=== PATIENT | male | born 2000 | race Caucasian/White ===

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

== ENCOUNTER 2021-03-15 04:18 | Emergency (ER) | payer SELFPAY ==
[~2021-03-15] VITALS: Ht 180.3 cm; Wt 62.7 kg
[~2021-03-15 04:18] MED LIST changes: +DIVA-76 PO; -DIVA500T7 PO; -SULF1TAB35 PO; +SULF1TAB38 PO
--- NOTE | 2021-03-15 04:39 | ED General ---
General Chief Complaint: General Problems/Pain Stated Complaint: "FEELS HOT" / N/V/D / COVID EXPOSED Nursing Triage Note: Patient reports feeling really warm and not being able to sleep Source of Information: Patient Exam Limitations: No Limitations History of Present Illness Date Seen by Provider: Mar 15, 2021 Time Seen by Provider: 04:26 Initial Comments Patient is a 20-year-old male who presents to the emergency department this morning with a chief complaint of nausea, body aches, diarrhea and feeling "hot". Patient states he woke up with symptoms this morning. He states he was exposed to Covid sometime last week. He complains of an earache this morning in both ears. No sore throat no runny nose or congestion. No chest pain or shortness of breath or productive cough. No abdominal pain. Nausea without vom iting. No urinary complaints. He is not Covid vaccinated. All other review of systems reviewed and negative except as stated. Timing/Duration: 1-3 Hours Severity: Moderate Associated Systoms: Headaches, Malaise, Nausea/Vomiting Allergies and Home Medications Allergies Coded Allergies: No Known Drug Allergies (Unverified , 09/01/17) Home Medications Dexamethasone 6 Mg Tablet, 6 MG PO DAILY Prescribed by: OLIVA JAIMES on 03/15/21 0520 Patient Home Medication List Home Medication List Reviewed: Yes Review of Systems Review of Systems Constitutional: see HPI, malaise EENTM: ear pain (bilateral) Respiratory: no symptoms reported Cardiovascular: no symptoms reported Gastrointestinal: diarrhea, nausea Genitourinary: no symptoms reported Musculoskeletal: no symptoms reported Skin: no symptoms reported All Other Systems Reviewed Negative Unless Noted: Yes Past Gwcjxsb-Kjrvut-Ikfdtv Hx Patient Social History Tobacco Use?: Yes Use of E-Cig and/or Vaping dev: Yes Use of E-Cig and/or Vaping [place]: Current Everyday User Substance use?: No Pt feels they are or have been: No Immunizations Up To Date Tetanus Booster (TDap): Less than 5yrs PED Vaccines UTD: Yes Seasonal Allergies Seasonal Allergies: No Past Medical History Surgeries: No Respiratory: No Cardiac: No Neurological: No (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) Reproductive Disorders: No Genitourinary: No Gastrointestinal: No Musculoskeletal: No Endocrine: No HEENT: No Cancer: No Psychosocial: Yes (HISTORY OF CUTTING, SUICIDAL IDEATIONS; POLYSUBSTANCE ABUSE) Anxiety, Suicide Attempts, Bipolar, Depression Integumentary: No Blood Disorders: No Adverse Reaction/Blood Tranf: No Family Medical History No Pertinent Family Hx, Cancer, Psychiatric Problems Physical Exam Vital Signs Vital Signs - First Documented 03/15/21 04:29 Temp 36.8 Pulse 97 Resp 20 B/P (MAP) 124/78 (93) Pulse Ox 98 O2 Delivery Room Air Capillary Refill : Height, Weight, BMI Height: 5'11.00" Weight: 148lbs. 0.0oz. [id number]; 19.00 BMI Method:Stated General Appearance: No Apparent Distress, WD/WN Eyes: Bilateral Eye Normal Inspection, Bilateral Eye PERRL, Bilateral Eye EOMI HEENT: TMs Normal Neck: Normal Inspection, Non Tender, Supple Respiratory: Lungs Clear, Normal Breath Sounds, No Accessory Muscle Use, No Respiratory Distress Cardiovascular: Regular Rate, Rhythm, Normal Peripheral Pulses Gastrointestinal: Non Tender, Soft Extremity: Normal Inspection, Normal Range of Motion Neurologic/Psychiatric: Alert, Oriented x3, Normal Mood/Affect Skin: Normal Color, Warm/Dry Progress/Results/Core Measures Suspected Sepsis SIRS Temperature: Pulse: 97 Respiratory Rate: 20 Blood Pressure 124 /78 Mean: 93 Results/Orders Lab Results Laboratory Tests Test 03/15/21 04:44 Range/Units SARS-CoV-2 RNA (RT-PCR) Detected H Not Detecte My Orders Orders - OLIVA JAIMES MD Covid 19 Inhouse Test (03/15/21 04:35) Ibuprofen Tablet (Motrin Tablet) (03/15/21 04:45) Dexamethasone Tablet (Decadron Tablet) (03/15/21 05:20) Medications Given in ED Current Medications Medications Dose Ordered Sig/Aaron Route Start Time Stop Time Status Last Admin Dose Admin Ibuprofen 600 mg ONCE ONCE PO 03/15/21 04:45 03/15/21 04:46 DC 03/15/21 04:45 600 MG Vital Signs/I&O 03/15/21 04:29 Temp 36.8 Pulse 97 Resp 20 B/P (MAP) 124/78 (93) Pulse Ox 98 O2 Delivery Room Air Capillary Refill : Blood Pressure Mean: 93 Progress Note : Time: 05:17 Progress Note Patient is positive for Covid. Will recommend decadron 6 mg a day for 5 days. Home with encouragement of fluids and tylenol and ibuprofen. Return precautions given. Quarantine for 10days. Departure Impression Primary Impression: COVID-19 Disposition: 01 HOME, SELF-CARE Condition: Stable Departure-Patient Inst. Decision time for Depature: 05:18 Referrals: [facility]/ (PCP/Family) Primary Care Physician Patient Instructions: COVID-19 (DC) Add. Discharge Instructions: Drink plenty of fluids to stay well-hydrated. Alternate Tylenol and ibuprofen for body aches, headaches and pain. Decadron 6 mg a day by mouth for the next 5 days. Follow-up with your primary care physician as needed. Return to the emergency department for reevaluation if you have worsening symptoms to include shortness of breath, high fever, or other emergent concerning symptoms. Scripts Dexamethasone (Decadron) 6 Mg Tablet 6 MG PO DAILY for 4 Days, #4 TAB Prov: OLIVA JAIMES MD 03/15/21 Work/School Note: Work Release Form Date Seen in the Emergency Department: Mar 15, 2021 Return to Work: Mar 25, 2021 Other Restrictions Listed Below: Off work 10 days for quarantine due to Covid 19 virus OLIVA JAIMES MD Mar 15, 2021 04:39
[2021-03-15] MEDS ORDERED: IBUPROFEN 600 MG (MOTRIN) TAB PO ONE (04:45)
[2021-03-15] MEDS ORDERED: dexAMETHasone 6 MG TAB (DECADRON) PO STA (05:20)
[2021-03-15] MEDS ORDERED: DEXA6TAB6 PO (05:20)
[2021-03-15 05:25] VITALS: BP 124/78
[2021-03-16] MEDS ORDERED: DOXY100T2 PO (18:16)
== END 2021-03-15 05:31 | disposition home or self-care (01) ==
LOC: EDUNIT# 04:18 → ER 04:20
DX: U07.1 COVID-19 (principal); F17.200 Nicotine dependence, unspecified, uncomplicated
CPT/HCPCS: 87636; 99283

== ENCOUNTER 2021-03-15 14:18 | Emergency (ER) | payer SELFPAY ==
[~2021-03-15] VITALS: Ht 180 cm; Wt 62.7 kg
[~2021-03-15 14:18] MED LIST changes: +DEXA6TAB6 PO
[2021-03-15] MEDS ORDERED: AZITHROMYCIN 250 MG TAB (ZITHROMAX) PO ONE (15:00)
[2021-03-15] MEDS ORDERED: cefTRIAXone 1,000 MG in WATER (STERILE) FOR INJECTION 10 ML IV ONE (15:00)
--- NOTE | 2021-03-15 15:09 | ED GU-Male ---
General Chief Complaint: - Urinary Stated Complaint: BURNING WHILE URINATING, COVID+ Nursing Triage Note: PT PRESENTS TO THE ED WITH CONCERNS OF URINARY DISCOMFORT AFTER BEGINNING STEROIDS THIS AM AFTER BEING DX WITH COVID IN THIS ED. PT STATES HE WAS SEEN FOR ABD. PAIN AND LOOSE STOOLS AROUND 0400. PT VERBALIZES A HX OF STD'S Source: patient Exam Limitations: no limitations History of Present Illness Date Seen by Provider: Mar 15, 2021 Time Seen by Provider: 14:36 Initial Comments Patient to the ER by private conveyance from home with chief complaint that a bout 2:00 this afternoon he started having some burning with urination fever chills and body aches. He went to an urgent care where he was tested positive for Covid but they did not do any urine specimens. He is not having any urinary discharge, testicular swelling or redness. He says he was positive for syphilis about 7 months ago and was treated with a shot of antibiotics. He says he has not been sexually active since then. The clinic put him on steroids for his Covid Allergies and Home Medications Allergies Coded Allergies: No Known Drug Allergies (Unverified , 09/01/17) Home Medications Dexamethasone 6 Mg Tablet, 6 MG PO DAILY Prescribed by: OLIVA JAIMES on 03/15/21 0520 Patient Home Medication List Home Medication List Reviewed: Yes Review of Systems Review of Systems Constitutional: No chills, No diaphoresis EENTM: No ear discharge, No ear pain Respiratory: No cough, No short of breath Cardiovascular: No chest pain, No palpitations Gastrointestinal: No abdominal pain, No nausea, No vomiting Genitourinary: burning; denies discharge; dysuria; denies flank pain, denies hematuria All Other Systemes Reviewed Negative Unless Noted: Yes Past Pwazxpe-Sttitu-Tpgbfm Hx Patient Social History Tobacco Use?: Yes Use of E-Cig and/or Vaping dev: Yes Substance use?: No Alcohol Use?: No Immunizations Up To Date Tetanus Booster (TDap): Less than 5yrs PED Vaccines UTD: Yes Influenza Vaccine Up-to-Date: No; Not Current Seasonal Allergies Seasonal Allergies: No Past Medical History Surgeries: No Respiratory: No Cardiac: No Neurological: No (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) Reproductive Disorders: No Genitourinary: No Gastrointestinal: No Musculoskeletal: No Endocrine: No HEENT: No Cancer: No Psychosocial: Yes (HISTORY OF CUTTING, SUICIDAL IDEATIONS; POLYSUBSTANCE ABUSE) Anxiety, Suicide Attempts, Bipolar, Depression Integumentary: No Blood Disorders: No Adverse Reaction/Blood Tranf: No Family Medical History No Pertinent Family Hx, Cancer, Psychiatric Problems Physical Exam Vital Signs Vital Signs - First Documented 03/15/21 14:38 Temp 37.6 Pulse 99 Resp 20 B/P (MAP) 125/77 (93) Pulse Ox 100 O2 Delivery Room Air Capillary Refill : Less Than 3 Seconds Height, Weight, BMI Height: 5'11.00" Weight: 148lbs. 0.0oz. 67.200357vn; 19.00 BMI Method:Stated General Appearance: WD/WN, no apparent distress HEENT: PERRL/EOMI, pharynx normal Neck: full range of motion, normal inspection Cardiovascular: normal peripheral pulses, regular rate, rhythm Respiratory: no respiratory distress, no accessory muscle use Neurologic/Psychiatric: alert, oriented x 3, other (Anxious affect) Skin: normal color, warm/dry Progress/Results/Core Measures Suspected Sepsis SIRS Temperature: Pulse: 99 Respiratory Rate: 20 Blood Pressure 125 /77 Mean: 93 Results/Orders Lab Results Laboratory Tests Test 03/15/21 14:54 03/15/21 15:00 Range/Units Urine Color YELLOW Urine Clarity CLEAR Urine pH 6.5 5-9 Urine Specific [place] 1.025 H 1.016-1.022 Urine Protein 1+ H NEGATIVE Urine Glucose (UA) 3+ H NEGATIVE Urine Ketones NEGATIVE NEGATIVE Urine Nitrite NEGATIVE NEGATIVE Urine Bilirubin NEGATIVE NEGATIVE Urine Urobilinogen 1.0 < = 1.0 MG/DL Urine Leukocyte Esterase NEGATIVE NEGATIVE Urine RBC (Auto) NEGATIVE NEGATIVE Urine RBC NONE /HPF Urine WBC RARE /HPF Urine Crystals PRESENT H /LPF Urine Amorphous Sediment RARE MOSES URATES H /LPF Urine Bacteria NEGATIVE /HPF Urine Casts NONE /LPF Urine Mucus NEGATIVE /LPF Urine Culture Indicated NO My Orders Orders - BILL FRANKS Ua Culture If Indicated (03/15/21 14:41) Neis Agustin Dna Urine Test (03/15/21 15:00) Chlamydia Trachomatis Urine (03/15/21 15:00) Ceftriaxone (Rocephin) (03/15/21 15:00) Azithromycin Tablet (Zithromax Tablet) (03/15/21 15:00) Syphilis Antibody Screen (03/15/21 15:05) Medications Given in ED Current Medications Medications Dose Ordered Sig/Aaron Route Start Time Stop Time Status Last Admin Dose Admin Azithromycin 1,000 mg ONCE ONCE PO 03/15/21 15:00 03/15/21 15:02 DC 03/15/21 15:11 1,000 MG Ceftriaxone Sodium 1000 mg/ Sterile Water 10 ml @ 200 mls/hr ONCE ONCE IV 03/15/21 15:00 03/15/21 15:02 DC 03/15/21 15:12 200 MLS/HR Vital Signs/I&O 03/15/21 14:38 Temp 37.6 Pulse 99 Resp 20 B/P (MAP) 125/77 (93) Pulse Ox 100 O2 Delivery Room Air Capillary Refill : Less Than 3 Seconds Blood Pressure Mean: 93 Progress Note : Time: 15:07 Progress Note Plan to retest give him a shot of Rocephin, azithromycin and send off a syphilis as well. Departure Impression Primary Impression: Urethritis, unspecified Disposition: HOME, SELF-CARE Condition: Stable Departure-Patient Inst. Decision time for Depature: 16:05 Referrals: [facility] (PCP/Family) Primary Care Physician TAMMY ONEIL MD Patient Instructions: Urethritis (DC) Add. Discharge Instructions: Drink plenty of fluids. Azo 1 tablet twice a day as necessary for painful urina tion. This will cause the urine to look dark orange which is normal. You should hear something by Monday or if there is a positive result on your tests. If your symptoms are getting better then you do not need to do anything different. You may follow-up with your primary care doctor or the urologist, Dr. Oneil if your symptoms are not improving over the next 2 to 3 days. All discharge instructions reviewed with patient and/or family. Voiced understanding. Copy Copies To 1: TAMMY ONEIL MD, TITUS J Mar 15, 2021 15:09
[2021-03-15 15:17] LABS: BILIRUBIN,URINE NEGATIVE (NEGATIVE); CLARITY,URINE CLEAR; COLOR,URINE YELLOW; GLUCOSE, URINE (UA) 3+ (NEGATIVE); KETONES,URINE NEGATIVE (NEGATIVE); LEUKOCYTE ESTERASE ,URINE NEGATIVE (NEGATIVE); NITRITE,URINE NEGATIVE (NEGATIVE); PH,URINE 6.5 (5-9); PROTEIN,URINE 1+ (NEGATIVE)
[2021-03-15 15:34] LABS: AMORPHOUS SEDIMENT,UR RARE AMOR URATES /LPF; BACTERIA,URINE NEGATIVE /HPF; WBC,URINE RARE /HPF
[2021-03-15 16:15] VITALS: BP 132/74
[2021-03-16] MEDS ORDERED: DOXY100T2 PO (18:16)
== END 2021-03-15 16:15 | disposition home or self-care (01) ==
LOC: EDUNIT# 14:18 → ER 14:20
DX: N34.2 Other urethritis (principal); U07.1 COVID-19
CPT/HCPCS: 36415; 81000; 86592; 86780; 87491; 87591

== ENCOUNTER 2021-03-16 17:42 | Emergency (ER) | payer SELFPAY ==
[~2021-03-16] VITALS: Ht 180 cm; Wt 62.5 kg
[2021-03-16] MEDS ORDERED: PEN G PROC/BENZATH 1.2 M UNITS/2 ml (BICILLIN C-R) SYR IM ONE (18:15)
[2021-03-16] MEDS ORDERED: DOXY100T2 PO (18:16)
--- NOTE | 2021-03-16 18:16 | ED General ---
General Chief Complaint: Abdominal/GI Problems Stated Complaint: URINARY PROBLEMS, COVID POSITIVE Source of Information: Patient, Old Records History of Present Illness Date Seen by Provider: Mar 16, 2021 Time Seen by Provider: 18:00 Initial Comments PT ARRIVES VIA POV FROM HOME PT WITH MULTIPLE COMPLAINTS PT HAS BEEN ILL FOR THE LAST 2 DAYS, AND WAS SEEN HERE YESTERDAY AND TESTED + FOR COVID-19, AND GIVEN RX FOR DECADRON X 5 DAYS PT STATES HE HAS OCCASIONAL SLIGHT SHORTNESS OF BREATH NO SIGNIFICANT COUGH DENIES FEVER/SWEATS/CHILLS TO ME STATES HE HAS HAD DECREASED SENSE OF TASTE AND SMELL C/O MILD NAUSEA, NO VOMITING HAD DIARRHEA X 1 TODAY, DID NOT MAKE IT TO BATHROOM IN TIME NO ABDOMINAL PAIN NO SORE THROAT NO HEADACHE OR BODY ACHES TODAY, BUT HAS HAD BODY ACHES ALSO SEEN IN ER A SECOND TIME YESTERDAY FOR URINARY SYMPTOMS--PAIN ON URINATION WAS GIVEN ROCEPHIN AND ZITHROMAX YESTERDAY PT STATES HE STILL HAS SOME PAIN ON URINATION REVIEWED TEST RESULTS FROM YESTERDAY--GONORRHEA AND CHLAMYDIA WERE NEGATIVE, BUT PT WAS POSITIVE FOR SYPHILIS CONTACTED [facility], [facility] AND THEY REPORT THAT PT TESTED + FOR SYPHILIS IN NOVEMBER OF THIS YEAR, AND WAS TREATED WITH A SHOT, BUT PT HAS NOT FOLLOWED UP ON DISCUSSING THIS WITH PT, HE DOES NOW ADMIT THAT HE HAD SYPHILIS CLAIMS HE HAS NOT HAD INTERCOURSE SINCE NOVEMBER, BUT DOES NOT STATE IF PARTNER/S WERE TREATED WHEN I QUESTIONED HIM ABOUT THIS--HE SIMPLY DOES NOT ANSWER QUESTION PT STATES HE DID HAVE A SORE ON HIS PENIS, BUT IT WENT AWAY AFTER HE WAS TREATED IN NOVEMBER PT STATES THE SORE HAS RETURNED RECENTLY, BUT UNABLE TO STATE WHEN HE NOTICED IT AGAIN--STATES THE SORE IS IN THE SAME PLACE BEFORE, AND IS PAINLESS AND NO DRAINAGE, ETC FROM THE AREA. [facility]ations Allergies Coded Allergies: No Known Drug Allergies (Unverified , 09/01/17) Home Medications Dexamethasone 6 Mg Tablet, 6 MG PO DAILY Prescribed by: OLIVA JAIMES on 03/15/21 0520 Doxycycline Hyclate 100 Mg Tablet, 100 MG PO BID Prescribed by: EDER LÓPEZ on 03/16/21 1816 Patient Home Medication List Home Medication List Reviewed: Yes Review of Systems Review of Systems Constitutional: no symptoms reported EENTM: see HPI Respiratory: see HPI Cardiovascular: no symptoms reported Gastrointestinal: see HPI Genitourinary: see HPI Musculoskeletal: no symptoms reported Skin: see HPI Psychiatric/Neurological: No Symptoms Reported Hematologic/Lymphatic: No Symptoms Reported Immunological/Allergic: no symptoms reported Past Latcfhy-Jnbaer-Fbvhpz Hx Patient Social History Tobacco Use?: No Use of E-Cig and/or Vaping dev: Yes E-Cig or Vaping type used: Nicotine Use of E-Cig and/or Vaping [place]: Current Everyday User Substance use?: No Alcohol Use?: No Immunizations Up To Date Tetanus Booster (TDap): Less than 5yrs PED Vaccines UTD: Yes Seasonal Allergies Seasonal Allergies: No Past Medical History Surgeries: No Respiratory: No Cardiac: No Neurological: No (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") Reproductive Disorders: No Sexually Transmitted Disease: Yes (SYPHILIS DX 11/2020, AND AGAIN 03/15/21) Genitourinary: No Gastrointestinal: No Musculoskeletal: No Endocrine: No HEENT: No Cancer: No Psychosocial: Yes (HISTORY OF CUTTING, SUICIDAL IDEATIONS; POLYSUBSTANCE ABUSE) Anxiety, Suicide Attempts, Bipolar, Depression Integumentary: No Blood Disorders: No Adverse Reaction/Blood Tranf: No Family Medical History No Pertinent Family Hx, Cancer, Psychiatric Problems Physical Exam Vital Signs Vital Signs - First Documented 03/16/21 18:05 Temp 37.6 Pulse 67 Resp 18 B/P (MAP) 120/70 (87) Pulse Ox 97 O2 Delivery Room Air Capillary Refill : Height, Weight, BMI Height: 5'11.00" Weight: 148lbs. 0.0oz. [id number]; 19.00 BMI Method:Stated General Appearance: No Apparent Distress, WD/WN, Thin, Other (DOES NOT APPEAR ILL OR TO BE IN ANY DISCOMFORT OR DISTRESS) HEENT: PERRL/EOMI, TMs Normal, Normal ENT Inspection, Pharynx Normal Neck: Normal Inspection Respiratory: Normal Breath Sounds, No Accessory Muscle Use, No Respiratory Distress Cardiovascular: Regular Rate, Rhythm, No Murmur Gastrointestinal: Normal Bowel Sounds, No Organomegaly, No Pulsatile Mass, Non Tender, Soft Genital/Rectal: Other (EXAM PERFORMED WITH MALE NURSE CHEMICAL PUMPER. MILD BILATERAL INGUINAL ADENOPATHY. NO PENILE DISCHARGE. PT DOES HAVE APPROXIMATELY 1 X 1 1/2 CM SHALLOW ULCERATION TO LEFT SIDE OF SHAFT OF PENIS. 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 Progress/Results/Core Measures Suspected Sepsis SIRS Temperature: Pulse: Respiratory Rate: Blood Pressure / Mean: Results/Orders My Orders Orders - EDER LÓPEZ DO Penicillin G Proc/Faizan 1.2 Mu (Bicillin (03/16/21 18:15) Medications Given in ED Current Medications Medications Dose Ordered Sig/Aaron Route Start Time Stop Time Status Last Admin Dose Admin Penicillin G Procaine/ Benzathine 2,400,000 unit ONCE ONCE IM 03/16/21 18:15 03/16/21 18:16 DC 03/16/21 18:30 2,400,000 UNIT Vital Signs/I&O 03/16/21 03/16/21 18:05 18:38 Temp 37.6 36.8 Pulse 67 72 Resp 18 18 B/P (MAP) 120/70 (87) 121/71 Pulse Ox 97 100 O2 Delivery Room Air Room Air Capillary Refill : Progress Note : Progress Note PLACED IN ISOLATION ROOM PPE WORN AT ALL TIMES GIVEN SHOT OF PEN G 2.4 M/U IM Departure Communication (Admissions) 2595--CONTACTED [facility] AND SPOKE WITH DIRECTOR CLINICAL RESEARCH LAYNE WALKER. THEY WILL FOLLOW UP WITH PT, AND DO ALL NECESSARY ADDITIONAL LAB WORK SUCH HIV, HEPATITIS, BASELINE LAB, ETC. APPOINTMENT MADE FOR 03/29/21 AT 3:[address] Patricia DEUTSCH AT [facility] Impression Primary Impression: Syphilis Additional Impression: COVID-19 Disposition: 01 HOME, SELF-CARE Condition: Stable Departure-Patient Inst. Decision time for Depature: 18:18 Referrals: [facility] (PCP/Family) Primary Care Physician Patient Instructions: COVID-19 ED, Syphilis (DC), Sexually-Transmitted Diseases, STD Prevention Add. Discharge Instructions: NO INTERCOURSE OF ANY KIND FOLLOW UP WITH [facility] FOR FURTHER CARE--APPOINTMENT AT [facility] ON MARCH 29 AT 3:[address] DEUTSCH CONTINUE YOUR QUARANTINE FOR THE NEXT 2 WEEKS--NO ONE ENTERS OR LEAVES YOUR HOME, EXCEPT FOR YOU TO GO TO DR APPOINTMENTS All discharge instructions reviewed with patient and/or family. Voiced understanding. Scripts Doxycycline Hyclate (Doxycycline Hyclate) 100 Mg Tablet 100 MG PO BID, #30 TAB 0 Refills Prov: EDER LÓPEZ DO 03/16/21 EDER LÓPEZ DO Mar 16, 2021 18:16
[2021-03-16 18:38] VITALS: BP 121/71
== END 2021-03-16 18:53 | disposition home or self-care (01) ==
LOC: EDUNIT# 17:42 → ER 17:45
DX: A53.9 Syphilis, unspecified (principal); U07.1 COVID-19; F17.200 Nicotine dependence, unspecified, uncomplicated
CPT/HCPCS: 99284